=== PATIENT | male | born 1965 | race Hispanic/Latino ===

== ENCOUNTER → 2024-03-16 | Day surgery (SDC) | payer BC ==
[2024-03-15 12:30] LABS: BASOPHILS % 0.4 % (0.0-1.0); EOSINOPHILS # (AUTO) 0.2 (0.0-0.4); EOSINOPHILS % 2.4 % (0.0-6.0); HEMATOCRIT 47.6 % (38.2-49.6); LYMPHOCYTES # (AUTO) 1.9 (1.0-3.2); LYMPHOCYTES % 24.2 % (18.0-39.1); MEAN CORPUSCULAR HGB CONC 31.5 g/dL (31-35); MEAN CORPUSCULAR VOLUME 95.2 fL (81-99); MONOCYTES # (AUTO) 0.8 (0.2-0.8); MONOCYTES % 10.3 % (4.4-11.3); NEUTROPHILS % 62.3 % (38.7-80.0); PLATELET COUNT 226 x10e3/uL (140-360); RED CELL DISTRIBUTION WIDTH 13.6 % (11.7-14.4); WHITE BLOOD COUNT 8.02 x10e3/uL (4.8-10.8)
[2024-03-15 13:04] LABS: ALBUMIN 3.7 g/dL (3.5-5.0); ALBUMIN/GLOBULIN RATIO 0.8 (0.8-2.0); ANION GAP 12.3 mmol/L (8-16); BILIRUBIN,TOTAL 0.3 mg/dL (0.2-1.2); CALCIUM 9.7 mg/dL (8.4-10.2); CHOL/HDL RATIO 4.4 (3.9-4.7); CREATININE, SERUM 0.86 mg/dL (0.72-1.25); POTASSIUM 4.3 mmol/L (3.5-5.1); TOTAL PROTEIN 8.1 g/dL (6.5-8.1)
[2024-03-16] VITALS (11 sets, daily range): BP systolic 129–162; BP diastolic 76–95; PULSE 57–65; RESP 12–22; TEMP 98.1; O2SAT 92–99
[~2024-03-16] VITALS: Ht 180.3 cm; Wt 145.1 kg
[~2024-03-16] MED LIST: CARVEDILOL3.125 MG PO; FENTANYL CITRATE/PF 100MCG/2 ML INJ ONE; HEPARIN SOD (PORCINE) 1000 UNIT/ML 30ML ONE; HEPARIN SOD/SOD CHLORIDE 0 ML ONE; HEPARIN SOD/SOD CHLORIDE 2,000 ML ONE; IOPAMIDOL 370 MG/ML 100 ML INFUS..BTL INJ ONE; LIDOCAINE HCL 2% LOCAL 20 ML VIAL ONE; LOSARTAN POTASS25 MG PO; MIDAZOLAM HCL 2 MG/2 ML VIAL ONE; NITROGLYCERIN/D5W 200 MCG/ML 0 ML ONE; NITROGLYCERIN/D5W 200 MCG/ML 250 ML ONE; SODIUM CHLORIDE 0.9% 1000ML 1,000 ML ONE; VERAPAMIL HCL 2.5 MG/ML 2 ML VIAL ONE
== END | disposition home or self-care (01) ==
LOC: CATH LAB 07:45
PROVIDERS: ATTEND Internal Medicine Cardiovascular Disease
DX: I25.118 Atherosclerotic heart disease of native coronary artery with other forms of angina pectoris (principal); I10 Essential (primary) hypertension; I42.0 Dilated cardiomyopathy; R55 Syncope and collapse; I44.7 Left bundle-branch block, unspecified; E66.01 Morbid (severe) obesity due to excess calories; Z01.812 Encounter for preprocedural laboratory examination; Z79.899 Other long term (current) drug therapy; Z68.41 Body mass index [BMI] 40.0-44.9, adult
CPT/HCPCS: 36415; 76937; 80053; 80061; 85025; 93458; C1887; J1644; J2001; J2250; J3010; J7030; Q9967; 99152

== ENCOUNTER 2024-05-10 09:06 | Inpatient (IN) | payer BC ==
[2024-05-10] VITALS (26 sets, daily range): BP systolic 109–154; BP diastolic 61–84; PULSE 29–75; RESP 13–26; TEMP 97.5–98.9; O2SAT 95–100
[~2024-05-10] VITALS: Ht 180.3 cm; Wt 154.2 kg
[~2024-05-10 09:06] MED LIST changes: -FENTANYL CITRATE/PF 100MCG/2 ML INJ ONE; -HEPARIN SOD (PORCINE) 1000 UNIT/ML 30ML ONE; -HEPARIN SOD/SOD CHLORIDE 0 ML ONE; -HEPARIN SOD/SOD CHLORIDE 2,000 ML ONE; -IOPAMIDOL 370 MG/ML 100 ML INFUS..BTL INJ ONE; -LIDOCAINE HCL 2% LOCAL 20 ML VIAL ONE; -MIDAZOLAM HCL 2 MG/2 ML VIAL ONE; -NITROGLYCERIN/D5W 200 MCG/ML 0 ML ONE; -NITROGLYCERIN/D5W 200 MCG/ML 250 ML ONE; -SODIUM CHLORIDE 0.9% 1000ML 1,000 ML ONE; -VERAPAMIL HCL 2.5 MG/ML 2 ML VIAL ONE
[2024-05-10] MEDS ORDERED: BELLADONNA ALK/PHENOBARBITAL 5 ML UDC PO STA (09:42)
[2024-05-10] MEDS ORDERED: LIDOCAINE VISC 2% SOLN 15 ML UDC PO ONE (09:45)
[2024-05-10] MEDS ORDERED: MAGNESIUM/ALUMINUM/SIMETHICONE 30 ML UDC PO ONE (09:45)
[2024-05-10 09:51] LABS: BASOPHILS % 0.4 % (0.0-1.0); EOSINOPHILS # (AUTO) 0.2 (0.0-0.4); EOSINOPHILS % 1.4 % (0.0-6.0); HEMATOCRIT 43.4 % (38.2-49.6); HEMOGLOBIN 13.9 g/dL (14.0-18.0); LYMPHOCYTES # (AUTO) 1.8 (1.0-3.2); LYMPHOCYTES % 16.8 % (18.0-39.1); MEAN CORPUSCULAR HEMOGLOBIN 30.5 pg (28-32); MEAN CORPUSCULAR VOLUME 95.2 fL (81-99); MONOCYTES # (AUTO) 0.9 (0.2-0.8); MONOCYTES % 8.6 % (4.4-11.3); NEUTROPHILS # (AUTO) 7.6 (2.1-6.9); NEUTROPHILS % 72.4 % (38.7-80.0); PLATELET COUNT 210 x10e3/uL (140-360); RED BLOOD COUNT 4.56 x10e6/uL (4.3-5.7); RED CELL DISTRIBUTION WIDTH 13.8 % (11.7-14.4); WHITE BLOOD COUNT 10.54 x10e3/uL (4.8-10.8)
[2024-05-10 10:10] LABS: ALBUMIN 3.4 g/dL (3.5-5.0); ALBUMIN/GLOBULIN RATIO 0.8 (0.8-2.0); ANION GAP 12.1 mmol/L (8-16); BILIRUBIN,TOTAL 0.5 mg/dL (0.2-1.2); CALCIUM 9.3 mg/dL (8.4-10.2); CREATININE, SERUM 0.82 mg/dL (0.72-1.25); POTASSIUM 4.1 mmol/L (3.5-5.1); TOTAL PROTEIN 7.6 g/dL (6.5-8.1)
[2024-05-10 11:40] LABS: TROPONIN I 0.008 ng/mL (0-0.300)
[2024-05-10] MEDS: DONNATAL/LIDOCAINE/MAALOX 30 ML SUSP PO ONE (11:56)
[2024-05-10] MEDS ORDERED: Morphine 4mg INJECTION 4 MG/ML INJ IV PRN (12:15)
[2024-05-10] MEDS ORDERED: ASPIRIN 81 MG CHEW TAB ONE (12:22)
[2024-05-10 12:41] LABS: TROPONIN I 0.01 ng/mL (0-0.300)
[2024-05-10] MEDS: ASPIRIN 81 MG CHEW TAB PO ONE (13:10)
[2024-05-10] MEDS: ASPIRIN 325 MG TAB PO ONE (13:10)
[2024-05-10] MEDS ORDERED: ATROPINE SULFATE INJ 0.4 MG/ML VIAL IV PRN (13:45)
[2024-05-10] MEDS ORDERED: ONDANSETRON HCL INJ 2MG/ML 2ML 2 MG/ML VIAL IV PRN (14:45)
[2024-05-10] MEDS ORDERED: ZOLPIDEM TARTRATE 5 MG TAB PO PRN (14:45)
[2024-05-10] MEDS: MUPIROCIN 2% OINT 22 GM TUBE TOP SCH (15:20)
[2024-05-10] MEDS: LOSARTAN POTASSIUM 25 MG TAB PO SCH (17:10)
[2024-05-10] MEDS ORDERED: ACETAMINOPHEN 325 MG TAB PO PRN (21:45)
[2024-05-10] MEDS ORDERED: BISACODYL 10 MG SUPP PR PRN (21:45)
[2024-05-11] VITALS (43 sets, daily range): BP systolic 101–153; BP diastolic 58–112; PULSE 32–80; RESP 11–31; TEMP 97.9–99.1; O2SAT 98–100
[2024-05-11 07:12] LABS: BASOPHILS % 0.4 % (0.0-1.0); EOSINOPHILS # (AUTO) 0.1 (0.0-0.4); EOSINOPHILS % 1.5 % (0.0-6.0); HEMATOCRIT 43.2 % (38.2-49.6); HEMOGLOBIN 13.8 g/dL (14.0-18.0); LYMPHOCYTES # (AUTO) 1.9 (1.0-3.2); LYMPHOCYTES % 23.2 % (18.0-39.1); MEAN CORPUSCULAR HEMOGLOBIN 30.1 pg (28-32); MEAN CORPUSCULAR HGB CONC 31.9 g/dL (31-35); MEAN CORPUSCULAR VOLUME 94.1 fL (81-99); MONOCYTES # (AUTO) 0.7 (0.2-0.8); MONOCYTES % 8.7 % (4.4-11.3); NEUTROPHILS # (AUTO) 5.4 (2.1-6.9); NEUTROPHILS % 65.8 % (38.7-80.0); PLATELET COUNT 216 x10e3/uL (140-360); RED BLOOD COUNT 4.59 x10e6/uL (4.3-5.7); RED CELL DISTRIBUTION WIDTH 14.2 % (11.7-14.4); WHITE BLOOD COUNT 8.24 x10e3/uL (4.8-10.8)
[2024-05-11 07:39] LABS: ANION GAP 12.1 mmol/L (8-16); CALCIUM 8.7 mg/dL (8.4-10.2); CREATININE, SERUM 0.75 mg/dL (0.72-1.25); POTASSIUM 4.1 mmol/L (3.5-5.1)
[2024-05-11 08:06] LABS: CHOL/HDL RATIO 4.3 (3.9-4.7)
[2024-05-11 08:14] LABS: TROPONIN I 0.009 ng/mL (0-0.300)
[2024-05-11] MEDS ORDERED: GENTAMICIN SULFATE 40 MG/ML 2 ML VIAL ONE (16:22)
[2024-05-11] MEDS: FENTANYL CITRATE/PF 100MCG/2 ML INJ ONE (19:02)
[2024-05-11] MEDS: MIDAZOLAM HCL 2 MG/2 ML VIAL ONE (19:02)
[2024-05-11] MEDS: SODIUM CHLORIDE 0.9% 500ML 500 ML ONE ×2 (19:02→19:14)
[2024-05-11] MEDS: GENTAMICIN SULFATE 40 MG/ML 2 ML VIAL ONE ×2 (19:03→19:15)
[2024-05-11] MEDS: SODIUM CHLORIDE 0.9% 1000ML 1,000 ML ONE ×2 (19:03)
[2024-05-11] MEDS: IOPAMIDOL 610MG/1ML 300 MG/ML VIAL IV ONE (19:03)
[2024-05-11] MEDS: SODIUM BICARBONATE 8.4% SYRING 50 ML ONE (19:04)
[2024-05-11] MEDS: SODIUM CHLORIDE 0.9% 1000ML 2,000 ML ONE (19:04)
[2024-05-11] MEDS: SODIUM CHLORIDE 0.9% 250ML 250 ML ONE (19:04)
[2024-05-11] MEDS: LIDOCAINE HCL 2% LOCAL 20 ML VIAL ONE (19:05)
[2024-05-11] MEDS: Vancomycin IV 1 GM VIAL ONE (19:14)
[2024-05-11] MEDS: ATORVASTATIN 20 MG TAB PO SCH (20:35)
[2024-05-11] MEDS: HYDROCODONE/APAP 5MG-325MG TAB PO PRN (21:07)
[2024-05-12] VITALS (32 sets, daily range): BP systolic 114–167; BP diastolic 61–130; PULSE 61–73; RESP 16–29; TEMP 97.9–98.7; O2SAT 98–100
[2024-05-12 05:35] LABS: BASOPHILS % 0.3 % (0.0-1.0); EOSINOPHILS # (AUTO) 0.1 (0.0-0.4); EOSINOPHILS % 1.6 % (0.0-6.0); HEMATOCRIT 46.1 % (38.2-49.6); HEMOGLOBIN 14.4 g/dL (14.0-18.0); LYMPHOCYTES # (AUTO) 1.3 (1.0-3.2); LYMPHOCYTES % 14.3 % (18.0-39.1); MEAN CORPUSCULAR HGB CONC 31.2 g/dL (31-35); MONOCYTES # (AUTO) 0.8 (0.2-0.8); MONOCYTES % 8.5 % (4.4-11.3); NEUTROPHILS # (AUTO) 6.7 (2.1-6.9); NEUTROPHILS % 75.1 % (38.7-80.0); PLATELET COUNT 185 x10e3/uL (140-360); RED CELL DISTRIBUTION WIDTH 13.8 % (11.7-14.4); WHITE BLOOD COUNT 8.92 x10e3/uL (4.8-10.8)
[2024-05-12] MEDS: Morphine 4mg INJECTION 4 MG/ML INJ IV PRN (05:41)
[2024-05-12 05:50] LABS: ANION GAP 10.8 mmol/L (8-16); CALCIUM 8.6 mg/dL (8.4-10.2); CREATININE, SERUM 0.77 mg/dL (0.72-1.25); POTASSIUM 3.8 mmol/L (3.5-5.1)
[2024-05-12] MEDS: KETOROLAC TROMETHAMINE 10 MG TAB PO PRN (12:34)
[2024-05-12] MEDS ORDERED: LOSARTAN POTASS25 MG PO (14:36)
[2024-05-12] MEDS ORDERED: NORVASC5 MG PO (14:36)
[2024-05-12] MEDS ORDERED: ATORVASTATIN CA20 MG PO (14:36)
[2024-05-12] MEDS ORDERED: KETOROLAC TROME10 MG PO (14:36)
[2024-05-12] MEDS: HYDRALAZINE HCL 25 MG TAB PO ONE (16:33)
[2024-05-13] MEDS ORDERED: AMLODIPINE BESYLATE 5 MG TAB PO SCH (09:00)
== END 2024-05-12 18:00 | disposition home or self-care (01) | DRG 243 ==
LOC: ER 09:40 → ERHOLD 12:13 → ICU 13:56
PROVIDERS: ADMIT Internal Medicine; ATTEND Internal Medicine
PROC: 02H63JZ Insertion of Pacemaker Lead into Right Atrium, Percutaneous Approach (ICD-10-PCS; principal; 2024-05-11)
PROC: 0JH606Z Insertion of Pacemaker, Dual Chamber into Chest Subcutaneous Tissue and Fascia, Open Approach (ICD-10-PCS; 2024-05-11)
PROC: 02HK3JZ Insertion of Pacemaker Lead into Right Ventricle, Percutaneous Approach (ICD-10-PCS; 2024-05-11)
PROC: 02HL3JZ Insertion of Pacemaker Lead into Left Ventricle, Percutaneous Approach (ICD-10-PCS; 2024-05-11)
PROC: B5171ZZ Fluoroscopy of Left Subclavian Vein using Low Osmolar Contrast (ICD-10-PCS; 2024-05-11)
DX: I44.1 Atrioventricular block, second degree (principal); I50.22 Chronic systolic (congestive) heart failure; Z68.42 Body mass index [BMI] 45.0-49.9, adult; I11.0 Hypertensive heart disease with heart failure; E66.01 Morbid (severe) obesity due to excess calories; R00.1 Bradycardia, unspecified; R55 Syncope and collapse; I45.5 Other specified heart block
CPT/HCPCS: 33217; 33225; 36415; 71045; 75710; 80048; 80053; 80061; 82550; 83036; 83735; 84443; 84484; 85025; 93005; 93306; 94799; 99152; 99153; 99252; 99284; C1763; C1769; C1898; C1900; C2621; J1580; J2003; J2250; J2270; J2470; J7030; J7040; J7050